=== PATIENT | female | born 1950 | race Caucasian/White ===

== ENCOUNTER 2020-11-20 16:25 | Emergency (ER) | payer MEDICARE ==
[~2020-11-20] VITALS: Ht 162.6 cm; Wt 90.9 kg
[2020-11-20] MEDS ORDERED: ATENOLOL25 MG PO (16:43)
[2020-11-20] MEDS ORDERED: LIPITOR 80MG80 MG PO (16:43)
[2020-11-20] MEDS ORDERED: MICARDIS40 M1 PO (16:43)
[2020-11-20] MEDS ORDERED: ZETIA10 M1 PO (16:43)
[2020-11-20] MEDS ORDERED: CLONIDINE HYDR0.1 MG PO (16:43)
[2020-11-20] MEDS ORDERED: WELCHOL 625MG625 MG PO (16:44)
[2020-11-20] MEDS ORDERED: VITAMIN C500 M6 PO (16:45)
[2020-11-20] MEDS ORDERED: ASPIRIN 32325 MG/TAB PO (16:45)
[2020-11-20] MEDS ORDERED: GLUCOSAMINE CH1 EAC5 PO (16:46)
[2020-11-20] MEDS ORDERED: MAGNESIUM250 M2 PO (16:46)
[2020-11-20] MEDS ORDERED: DAILY VALUE1 EACH PO (16:46)
[2020-11-20 17:30] LABS: BASO # 0.01 (0.02-0.10); EOS # 0.09 (0.04-0.40); EOS % 1.7 % (1.0-5.0); HEMATOCRIT 41.6 % (37.0-47.0); HEMOGLOBIN 13.9 g/dL (12.5-16.0); LYMPH# 1.72 (1.50-4.00); MEAN CELL VOLUME 91 fl (78-100); MEAN CORPUSCULAR HEMOGLOBIN 31 pg (27-31); MEAN CORPUSCULAR HGB CONC 33 g/dL (33-37); MEAN PLATELET VOLUME 12.5 fl (7.4-10.4); MONO # 0.64 (0.20-0.80); NEU # 2.83 (1.40-6.50); PLATELET COUNT 78 K/mm3 (130-400); RED BLOOD COUNT 4.56 M/mm3 (4.10-5.30); RED CELL DISTRIBUTION WIDTH 11.9 % (11.5-14.5); WHITE BLOOD COUNT 5.3 K/mm3 (4.8-10.8)
[2020-11-20 17:36] LABS: ALBUMIN 4.3 g/dL (3.4-4.8)
[2020-11-20 17:37] LABS: POTASSIUM 4.1 mmol/L (3.5-5.1); SODIUM 140 mmol/L (136-145)
[2020-11-20 17:38] LABS: CALCIUM 10.2 mg/dL (8.3-10.5)
[2020-11-20 17:39] LABS: GLUCOSE 90 mg/dL (65-105); TOTAL PROTEIN 7.5 g/dL (6.2-8.1)
[2020-11-20 17:40] LABS: CARBON DIOXIDE 22 mmol/L (23-31)
[2020-11-20 17:41] LABS: TOTAL BILIRUBIN 0.8 mg/dL (0.2-1.2)
[2020-11-20 17:44] LABS: AST-SGOT 44 U/L (5-34)
[2020-11-20 17:46] LABS: ALT/SGPT 51 U/L (0-55)
[2020-11-20 17:52] LABS: TROPONIN-I < 0.03 ng/mL (<0.030)
[2020-11-20 18:13] LABS: URINE APPEARANCE CLEAR; URINE BILIRUBIN NEGATIVE (NEGATIVE); URINE BLOOD NEGATIVE (NEGATIVE); URINE COLOR YELLOW; URINE GLUCOSE NEGATIVE (NEGATIVE); URINE KETONE NEGATIVE (NEGATIVE); URINE LEUKOCYTE ESTERASE NEGATIVE (NEGATIVE); URINE NITRATE NEGATIVE (NEGATIVE); URINE PROTEIN(semi-quant) NEGATIVE (NEGATIVE); URINE UROBILINOGEN NORMAL (NORMAL)
[2020-11-20 19:11] VITALS: BP 167/80
== END 2020-11-20 19:12 | disposition home or self-care (01) ==
LOC: ED 16:25
PROVIDERS: Nurse Practitioner Family
DX: I10 Essential (primary) hypertension (principal); H53.9 Unspecified visual disturbance; Z20.822 Contact with and (suspected) exposure to COVID-19